=== PATIENT | male | born 1995 | race Caucasian/White ===

== ENCOUNTER 2023-09-23 19:18 | Outpatient (CLI) | payer OTHER | END 2023-09-23 19:19 | disposition home or self-care (01) | LOC: SC 19:18 | PROVIDERS: ATTEND Internal Medicine Pulmonary Disease | DX: G47.61 Periodic limb movement disorder (principal) | CPT/HCPCS: 95810 ==

== ENCOUNTER 2023-10-07 13:37 | Outpatient (CLI) | payer OTHER ==
--- NOTE | 2023-10-07 14:29 | SLEEP CARE CONSULTATION ---
Information from patient questionnaire entered by Lizette Prather. I have reviewed and concur with the information entered by Lizette Prather. This document represents the service I personally performed and the decisions made by me, Adan Noriega MD, [facility]. History of Present Illness Service Date and Time: 10/07/2023 1337 Initial [place] Sleepiness Scale score: 10 (08/01/23) Current [place] Sleepiness Scale score: 12 (10/07/23) Additional HPI information: Mr. Rosenberg returned for follow up of the sleep study he had on 09/23/23. The polysomnography showed that The patient had reduced sleep efficiency due to sleep onset insomnia. The sleep architecture was relatively normal considering the first-night effect. Respiratory monitoring showed no significant sleep disordered breathing (AHI = 0.8) or hypoxia (shayla oxygen saturation of 92%). The patient only slept supine during this study (supine AHI = 0.8; non-supine = 0.00). Snore was infrequent and light in intensity. There was moderate periodic leg movement of sleep not associated with sleep fragmentation. Cardiac rhythm was normal sinus rhythm without significant arrhythmia. No abnormal behavior (parasomnia) observed during the night. Sleep Study - Results Type of Sleep Study: Polysomnography (COMPLETED 09/23/23) Prior sleep studies: No Allergies and Home Medications Drug allergies reviewed: Yes Home medication list reviewed: Yes Allergy and home medication list: Allergies No Known Drug Allergies Allergy (Verified 10/03/23 14:50) Review of Systems Review of systems same as previous: Yes (NO CHANGE) Physical Exam Vital signs obtained and entered by: LIZETTE Sheffield MA Blood Pressure: 156/99 (LEFT ARM) Cuff size: long Heart Rate: 74 O2 Saturation: 99 Height: 5 ft 8 in Weight: 204 lb 3.2 oz Body Mass Index: 31.0 BMI Classification: Obese Impression and Plan IMPRESSION: 1. Periodic leg movement of sleep, moderate, with restless leg syndrome. The cause of periodic leg movement of sleep is typically unknown. A few known causes are iron deficiency, renal failure, and selective serotonin re uptake inhibitors. Iron and ferritin levels are recommended in addition to the routine blood work. The patient is taking fluoxetine which could cause the condition. Bupropion is an antidepressant that has the least effect on the legs. The patient reports having normal iron level recently. PLAN: 1. Follow up with primary care provider regarding periodic leg movem ent of sleep/restless leg syndrome to see if the antidepressant can be switched to bupropion. 2. Return to the sleep clinic on as needed basis. Follow up with Sleep Care in: as needed Follow up with: PCP Visit Type: In Office Time Spent with Patient (minutes): 15 Provider Statement: I spent 100% of the Face to Face Visit with the patient with greater than 50% spent counseling the patient and coordination of care.
[2023-10-07 14:31] VITALS: BP 156/99; O2SAT 99
== END 2023-10-07 13:38 | disposition home or self-care (01) ==
LOC: SC 13:37
PROVIDERS: ATTEND Internal Medicine Pulmonary Disease
DX: G47.61 Periodic limb movement disorder (principal); E66.9 Obesity, unspecified; Z68.31 Body mass index [BMI] 31.0-31.9, adult
CPT/HCPCS: 99212